=== PATIENT | male | born 1965 | race Caucasian/White ===

== ENCOUNTER → 2021-01-20 | Outpatient (CLI) | payer BC ==
[~2021-01-20] MED LIST: DIOVAN40 MG PO; ESOMEPRAZOLE MA40 MG PO; IMITREX100 MG PO; METOPROLOL TART25 MG PO; NORCO 7.5-3251 EACH PO; PLAQUENIL 200200 MG PO; PREDNISONE5 MG PO
== END ==
LOC: HEART 5 14:11
DX: D89.89 Other specified disorders involving the immune mechanism, not elsewhere classified (principal)
CPT/HCPCS: 94010

== ENCOUNTER → 2021-01-28 | Outpatient (CLI) | payer BC | LOC: KOH-I 13:51 | DX: D89.89 Other specified disorders involving the immune mechanism, not elsewhere classified (principal); D35.02 Benign neoplasm of left adrenal gland | CPT/HCPCS: 71250 ==